=== PATIENT | male | born 1950 | race Caucasian/White ===

== ENCOUNTER 2018-03-02 20:20 | Inpatient (IN) ==
[2018-03-03] MEDS ORDERED: Sod Chloride 0.9% Inj 1,000 ML IV.SIG ONE (00:10)
[2018-03-03] MEDS ORDERED: Morphine Inj 4 MG/ML Vial IV.PUSH PRN (00:10)
--- NOTE | 2018-03-03 00:18 | ED ---
HPI General Chief Complaint: Abdominal Pain Stated Complaint: dr reyes/khoa gallstone Time Seen by Provider: 03/03/18 00:05 Source: patient Mode of arrival: ambulatory Limitations: no limitations History of Present Illness HPI narrative: Patient stated that he started to develop an upper abdominal bandlike sensation since approximately 5:30 PM today just after dinner. Patient stated that he attempted to take antacids, attempted to burp or release flatulence and neither seem to help in any way. He stated 6 out of 10 intensity , however now it is 1 to 0 out of 10. Patient denies any nausea vomiting diarrhea fever cough runny nose sore throat flank pain or chest pain.... Patient states that his primary care advised him to come to the ER to evaluate and make sure that he does not have any infection of his gallbladder Primary care is Dr. Agustín Perez States allergy to doxycycline minocycline type cycling which she develops a rash , erythromycin gives him diarrhea. Has a history past medical history significant for hypertension, rheumatic fever , gallstones. Also states history of cirrhosis Past surgical history significant for hip replacement knee surgery MD complaint: Reports abdominal pain Onset (ago): hour(s) (7) Pain Consistency: constant and now resolved (Resolved just about 30 minutes ago) Location: Reports epigastric Severity: moderate Severity scale (1-10): 6 Quality: Reports aching and fullness Radiation: Reports none Migration to: Reports no migration Relieving factors: nothing Exacerbating factors: nothing Associated symptoms: Reports denies other symptoms Related Data Home Medications Medication Instructions Recorded Confirmed Klor-Con 10 meq PO DAILY 03/03/18 03/03/18 atenolol 100 mg PO DAILY 03/03/18 03/03/18 ezetimibe [Zetia] 10 mg PO DAILY 03/03/18 03/03/18 furosemide 20 mg PO DAILY 03/03/18 03/03/18 losartan 100 mg PO DAILY 03/03/18 03/03/18 omeprazole 20 mg PO DAILY 03/03/18 03/03/18 polyethylene glycol 3350 [Miralax] 17 g PO DAILY 03/03/18 03/03/18 wheat dextrin [Benefiber Clear SF 3 gm PO DAILY 03/03/18 03/03/18 (dextrin)] Allergies Allergy/AdvReac Type Severity Reaction Status Date / Time doxycycline Allergy Severe Rash, Verified 03/02/18 21:04 Generalized minocycline Allergy Severe Rash, Verified 03/02/18 21:04 Generalized tigecycline Allergy Severe Rash, Verified 03/02/18 21:04 Generalized erythromycin base AdvReac Mild Diarrhea Verified 03/02/18 21:04 Review of Systems ROS: all other systems reviewed are negative PMFSH History History Provided By: Patient Medical History Medical History History of gallstones (Acute) Hx of cirrhosis (Acute) Surgical History Surgical History History of hip replacement (Acute) Hx of knee surgery (Acute) Social History Social History Substance History: No History of Abuse Second Hand Smoke Exposure: No Smoking Status: Never smoker How Often Do You Have a Drink Containing Alcohol: Never Recent Travel in [facility] within the Last 8 Weeks: No Recent Out of Country Travel within the Last 8 Weeks: No Exam Narrative Exam Narrative: GENERAL: Well-nourished, well-developed patient in no apparent distress. SKIN: Warm and dry. HEAD: Atraumatic. Normocephalic. EYES: Pupils equal and round. No scleral icterus. No injection or drainage. ENT: No nasal bleeding or discharge. Mucous membranes pink and moist. NECK: Trachea midline. No JVD. CARDIOVASCULAR: Regular rate and rhythm. no rubs or gallops RESPIRATORY: No accessory muscle use. Clear to auscultation. Breath sounds equal bilaterally. GASTROINTESTINAL: Abdomen soft, non-tender, nondistended. No rebound or guarding MUSCULOSKELETAL: Extremities without clubbing, cyanosis, or edema. No obvious deformities. NEUROLOGICAL: Awake and alert. No obvious cranial nerve deficits. Motor grossly within normal limits. Five out of 5 muscle strength in the arms and legs. Normal speech. PSYCHIATRIC: Appropriate mood and affect; insight and judgment normal. Course Initial Documented Vital Signs Temperature 98.2 F 03/02/18 21:02 Pulse Rate 84 03/02/18 21:02 Respiratory Rate 16 03/02/18 21:02 Blood Pressure 192/84 H 03/02/18 21:02 Pulse Oximetry 95 03/02/18 21:02 Last Documented Vital Signs Temperature 98.0 F 03/02/18 21:04 Pulse Rate 86 03/03/18 01:04 Respiratory Rate 20 11/06/18 01:04 Blood Pressure 168/72 H 03/03/18 01:04 Pulse Oximetry 96 03/03/18 01:04 Medical Decision Making MDM Narrative Medical Screen Exam Complete: Yes Emergency Medical Condition: Yes Differential Diagnosis Differential Diagnosis: Colitis versus diverticulitis versus cholecystitis versus biliary colic versus pancreatitis Medical Records Medical records reviewed: Yes I reviewed the patient's medical records. Lab Data Result diagrams: 03/03/18 00:50 03/03/18 00:50 Lab Results 03/03/18 03/03/18 Range/Units 00:50 00:50 WBC 8.4 (4.0-11.0) th/mm3 RBC 4.94 (4.50-5.90) mil/mm3 Hgb 15.8 (13.0-17.0) gm/dL Hct 44.3 (39.0-51.0) % MCV 89.6 (80.0-100.0) fL MCH 32.1 (27.0-34.0) pg MCHC 35.8 (32.0-36.0) % RDW 13.2 (11.6-17.2) % Plt Count 208 (150-450) th/mm3 MPV 8.5 (7.0-11.0) fL Neut % (Auto) 69.1 (16.0-70.0) % Lymph % (Auto) 22.7 (9.0-44.0) % [place] % (Auto) 6.7 (0.0-8.0) % Eos % (Auto) 0.9 (0.0-4.0) % Baso % (Auto) 0.6 (0.0-2.0) % Neut # (Auto) 5.8 (1.8-7.7) th/mm3 Lymph # (Auto) 1.9 (1.0-4.8) th/mm3 [place] # (Auto) 0.6 (0.0-0.9) th/mm3 Eos # (Auto) 0.1 (0.0-0.4) th/mm3 Baso # (Auto) 0.1 (0.0-0.2) th/mm3 WBC Differential . Differential Comment Auto diff final Sodium 130 L (136-145) meq/L Potassium 4.1 (3.5-5.1) meq/L Chloride 93 L (98-107) meq/L Carbon Dioxide 25.2 (21.0-32.0) meq/L Anion Gap 12 (5-15) meq/L BUN 6 L (7-18) mg/dL Creatinine 0.80 (0.60-1.30) mg/dL Estimated GFR Greater than 89 (>89) mL/min Random Glucose 86 (74-106) mg/dL Calcium 9.2 (8.5-10.1) mg/dL Total Bilirubin 1.1 H (0.2-1.0) mg/dL AST 37 (15-37) U/L ALT 33 (12-78) U/L Alkaline Phosphatase 73 (45-117) U/L Total Creatine Kinase 668 H (39-308) U/L CK-MB (CK-2) 2.6 (0.5-3.6) ng/mL CK-MB (CK-2) % 0.4 (0.0-4.0) % Troponin I Less than 0.02 L (0.02-0.05) ng/mL Total Protein 7.5 (6.4-8.2) g/dL Albumin 3.9 (3.4-5.0) g/dL Lipase 88 (73-393) U/L Imaging Data Radiologist's impression: Abdomen/Pelvis CT 03/03/18 00:10 CONCLUSION: Cholecystitis ECG Data EKG Prior to Arrival: No Attestation: I personally reviewed and interpreted this ECG as follows: Prior ECG tracings: not available for review Interpretation: Normal sinus rhythm, 70 bpm, normal intervals, baseline motion artifact however no evidence of any acute ST elevation MA pattern. Discharge Plan Physicians Team ED Provider: Jonathan Ramires Primary Care Provider: Primary Care MoiiLydia Rxs /Orders / Referrals /Forms Prescriptions: No Action polyethylene glycol 3350 [Miralax] 17 gram Powder In Packet 17 g PO DAILY RF: 0 atenolol 100 mg Tablet 100 mg PO DAILY RF: 0 furosemide 20 mg Tablet 20 mg PO DAILY RF: 0 losartan 100 mg Tablet 100 mg PO DAILY RF: 0 ezetimibe [Zetia] 10 mg Tablet 10 mg PO DAILY RF: 0 omeprazole 20 mg Tablet,Delayed Release (Dr/Ec) 20 mg PO DAILY RF: 0 wheat dextrin [Benefiber Clear SF (dextrin)] 3 gram/3.5 gram Powder In Packet 3 gm PO DAILY RF: 0 Klor-Con 10 meq PO DAILY RF: 0 Status ED Status: With Doctor
[2018-03-03 01:30] LABS: Baso # (Auto) 0.1 th/mm3 (0.0-0.2); Baso % (Auto) 0.6 % (0.0-2.0); Eos # (Auto) 0.1 th/mm3 (0.0-0.4); Eos % (Auto) 0.9 % (0.0-4.0); Hematocrit 44.3 % (39.0-51.0); Hemoglobin 15.8 gm/dL (13.0-17.0); Lymph # (Auto) 1.9 th/mm3 (1.0-4.8); Lymph % (Auto) 22.7 % (9.0-44.0); Mean Corpuscular HGB Conc 35.8 % (32.0-36.0); Mean Corpuscular Hemoglobin 32.1 pg (27.0-34.0); Mean Corpuscular Volume 89.6 fL (80.0-100.0); Mean Platelet Volume 8.5 fL (7.0-11.0); Mono # (Auto) 0.6 th/mm3 (0.0-0.9); Mono % (Auto) 6.7 % (0.0-8.0); Neut # (Auto) 5.8 th/mm3 (1.8-7.7); Neut % (Auto) 69.1 % (16.0-70.0); Platelet Count 208 th/mm3 (150-450); Red Blood Count 4.94 mil/mm3 (4.50-5.90); Red Cell Distribution Width 13.2 % (11.6-17.2); White Blood Count 8.4 th/mm3 (4.0-11.0)
[2018-03-03 01:53] LABS: Anion Gap 12 meq/L (5-15)
[2018-03-03 02:01] LABS: Alanine Aminotransferase 33 U/L (12-78); Albumin 3.9 g/dL (3.4-5.0); Alkaline Phosphatase 73 U/L (45-117); Aspartate Aminotransferase 37 U/L (15-37); Blood Urea Nitrogen 6 mg/dL (7-18); Calcium 9.2 mg/dL (8.5-10.1); Carbon Dioxide 25.2 meq/L (21.0-32.0); Chloride 93 meq/L (98-107); Creatine Kinase 668 U/L (39-308); Glomerular Filtration Rate Greater Than 89 mL/min (>89); Glucose,Random 86 mg/dL (74-106); Lipase 88 U/L (73-393); Sodium 130 meq/L (136-145); Total Protein 7.5 g/dL (6.4-8.2)
[2018-03-03 02:02] LABS: Potassium 4.1 meq/L (3.5-5.1)
[2018-03-03 02:14] LABS: CKMB Percent 0.4 % (0.0-4.0); Creatine Kinase MB 2.6 ng/mL (0.5-3.6)
--- NOTE | 2018-03-03 03:20 | CT ---
EXAM DATE: 03/03/2018 3:07 AM EST AGE/SEX: 67 years / Male INDICATIONS: Upper abdominal pain. CLINICAL DATA: This is the patient's initial encounter. Patient reports that signs and symptoms have been present for 2 days and indicates a pain score of 7/10. MEDICAL/SURGICAL HISTORY: Cirrhosis. Gallstones. None. ORAL CONTRAST: No oral contrast ingested. RADIATION DOSE: 8.08 CTDI (mGy) COMPARISON: [facility], US ABDOMEN LIVER, 07/09/2017. . TECHNIQUE: Multiple contiguous axial images were obtained through the abdomen and pelvis following b olus infusion of 85 ml Omnipaque 350 (iohexol) nonionic water-soluble contrast as a single exam dos e. No oral contrast ingested. Using automated exposure control and adjustment of the mA and/or kV ac cording to patient size, radiation dose was kept as low as reasonably achievable to obtain optimal di agnostic quality images. DICOM format image data is available electronically for review and comparis on. FINDINGS: Lower Lungs: The visualized lower lungs are clear. Liver: The liver has a homogeneous density without space-occupying lesion. There is no dilation of th e biliary tree. Several gallstones are present, including a stone in the gallbladder neck. There is p rominent gallbladder wall thickening and pericholecystic induration. Appearance consistent with aris cystitis. Spleen: Homogeneous density without enlargement. Pancreas: Unremarkable without mass or calcification. Kidneys: Normal in size and shape. No evidence of mass or hydronephrosis. Adrenal Glands: Unremarkable. Aorta: The aorta and proximal iliac vessels are grossly unremarkable without aneurysmal dilation. Bowel/Mesentery: The bowel loops are grossly unremarkable. The cecum and sigmoid colon have a normal configuration. Abdominal Wall: Intact. Retroperitoneum: No evidence of adenopathy in the retrocrural, para-aortic, or deep pelvic regions. Bladder: Contours are smooth. Reproductive Organs: No abnormal masses or calcifications seen. Inguinal: The inguinal region is unremarkable without evidence of adenopathy. Bony Structures: Left total hip arthroplasty producing streak artifact over the low pelvis. Mild deg enerative changes in the spine. CONCLUSION: Cholecystitis Electronically signed by: Agustín Malin MD 03/03/2018 3:19 AM EST
[2018-03-03] MEDS ORDERED: Piperacil/Tazo 3.375 GM Premix 50 ML IV.SIG ONE (03:26)
[2018-03-03] MEDS ORDERED: Bisacodyl 10 MG Supp RECTAL PRN (04:00)
[2018-03-03 04:15] LABS: Bilirubin,Urine Negative (Negative); Clarity,Urine Clear (Clear); Color,Urine Straw (Yellw/Straw); Glucose,Urine (UA) Negative (Negative); Leukocyte Esterase,Urine Negative (Negative); Nitrite,Urine Negative (Negative); Specific Gravity,Urine 1.003 (1.002-1.035)
[2018-03-03] MEDS: Sod Chloride 0.9% Inj 1,000 ML IV.CONT SCH ×2 (06:02→22:33)
[2018-03-03] MEDS: Piperacil/Tazo 4.5 GM Premix 4.5 GM/100 ML BAG IV.SIG SCH ×4 (06:18→22:27)
--- NOTE | 2018-03-03 08:03 | ECG ---
Date Performed: 03/03/2018 Time Performed: 00:35:47 PTAGE: 67 years EKG: Sinus rhythm NORMAL ECG Compared to prior electrocardiogram, Nonspecific T-wave changes have improved. PREVIOUS TRACING : 06/02/2011 18.29 DOCTOR: Paul Garcia Interpretating Date/Time 03/03/2018 08:02:17
--- NOTE | 2018-03-03 09:18 | MH ---
cc: Nikolay Perez MD DATE OF ADMISSION: 03/03/2018 ADMITTING DIAGNOSIS: Epigastric and right upper quadrant abdominal pain, acute cholecystitis. HISTORY OF PRESENT ILLNESS: This 67-year-old white male with a history of alcoholic cirrhosis, hyperlipidemia and hypertension, contacted the undersigned physician on the evening prior to admission complaining of epigastric and right upper quadrant discomfort following a meal. He states that he tried to belch and did not have any improvement. He had some nausea, but no emesis. He denied any fever or chills. His last bowel movement was earlier in the day. He denied any melena or hematochezia. The patient denied any cough, shortness of breath, or palpitations. He has a known history of cholelithiasis, based on a previous imaging study, but he has been asymptomatic. The patient was instructed to report to the emergency department for further evaluation and treatment. PAST MEDICAL HISTORY: Significant for alcoholic cirrhosis, for which he had a decompensation over 5 years ago. He has been asymptomatic since then and has been abstaining from alcohol. He has a history of a left patellar fracture, which was treated conservatively in 2013, hypertension, mitral valve prolapse, history of cholelithiasis. He has Dupuytren contractures of bilateral 5th fingers. He has Gilbert disease and seborrhea of the scalp. He is status post a left total hip replacement in 2009, and he is status post a hemorrhoidectomy. He also has a history of GERD. 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 CURRENT MEDICATIONS: 1. Atenolol 100 mg daily. 2. Potassium chloride 10 mEq daily. 3. Benefiber 2 tablespoons in 8 ounces of liquid daily. 4. MiraLax 17 grams in 8 ounces of liquid daily. 5. Omeprazole 20 mg daily. 6. Doxycycline 100 mg 1 capsule every other day. 7. Furosemide 20 mg 1 tablet daily. 8. Zetia 10 mg 1 tablet daily. 9. Losartan 50 mg 1 tablet daily. ALLERGIES: HE HAS NO KNOWN DRUG ALLERGIES. FAMILY HISTORY: Noncontributory. SOCIAL HISTORY: He is single. He lives alone. He is a businessman. He does not smoke. He did drink heavily in the past, but has abstained from alcohol for more than 5 years. REVIEW OF SYSTEMS: Negative except as outlined above. PHYSICAL EXAMINATION: VITAL SIGNS: Upon arrival to the emergency department, the patient's blood pressure was 192/84 with a heart rate 84, respirations 16, temperature was 98.2 degrees Fahrenheit, oxygen saturation on room air was 95%. Currently, his blood pressure is 165/78 with a heart rate of 88, respirations 20, oxygen saturation on room air is 98%. GENERAL: This is an overweight, elderly white male sitting up in bed, in no acute distress at this time. HEENT: Pupils equal, round, reactive to light. Extraocular movements are intact. Sclerae are anicteric. Conjunctivae are pink. Mouth and throat reveal moist mucous membranes. No erythema or exudates. Dentition is good. NECK: Supple without lymphadenopathy, JVD, bruits or thyromegaly. CARDIOVASCULAR: Regular rate and rhythm without murmurs, rubs or gallops. LUNGS: Clear to auscultation without wheezes, rhonchi or rales. ABDOMEN: Obese, soft, nontender, nondistended with bowel sounds present. No masses palpable. No hepatosplenomegaly. No CVAT. GENITOURINARY AND RECTAL: Deferred. LOWER EXTREMITIES: Reveal no appreciable edema. No calf tenderness. No Homans sign and 2+ distal pulses. SKIN: Warm and dry. No significant rashes or lesions. NEUROLOGIC: Nonfocal. LABORATORY DATA: The comprehensive metabolic profile was significant for sodium of 130, chloride 93. The total bilirubin was mildly elevated at 1.1. AST and ALT were normal at 37 and 33 respectively, alkaline phosphatase normal at 73. Troponin was less than 0.02. CK was 668 with an MB percent of only 0.4. The white blood cell count 8.4, hemoglobin 15.8, hematocrit 44.3, platelet count was 208,000. Differential was within normal limits. Urinalysis revealed a specific gravity of 1.003, pH of 7.0, 20 mg percent ketones, otherwise all the indices were negative. Culture was not indicated. A CT scan of the abdomen and pelvis revealed that the liver was homogeneous density without space-occupying lesion. There was no dilation of the biliary tree. There were several gallstones present including a stone in the neck of the gallbladder. There was prominent gallbladder wall thickening and pericolic induration. Appearance is consistent with cholecystitis. Otherwise, unremarkable study. IMPRESSION AND PLAN: This 67-year-old white male presents today with abdominal pain and nausea following a meal. CT scan is consistent with cholecystitis. The patient will be admitted to A medical/surgical bed, made n.p.o., placed on IV fluids. He was placed on IV antibiotics in the form of Zosyn. I have consulted general surgery for evaluation for possible cholecystectomy. The patient is currently asymptomatic, which is a significant change from his presentation to the emergency department. It is possible that he was experiencing some choledocholithiasis causing his acute discomfort, but he does have findings consistent with cholecystitis. White blood cell count is normal and liver function studies are normal, so we will discuss the need for surgery with general surgery. 2. Hypertension. Blood pressure elevated. The patient did not take his usual medications last evening. We will resume his atenolol and losartan. Will monitor blood pressure closely. Provide additional medication if needed to control hypertension. 3. History of gastroesophageal reflux disease. The patient will be placed on IV pantoprazole until can take p.o. and then will transition back to omeprazole. 4. Hyperlipidemia. The patient normally takes Zetia. We will hold for now, resume after at the time of discharge. 5. Elevated CK level. The patient's EKG is unchanged from prior study and shows no findings of acute ischemia. MB percent was low. We will repeat CK and follow levels. Troponin was within normal limits. Doubt any coronary ischemia. I have explained the plan of care to the patient who expressed understanding and agreement. MD RYAN Claros/godwin , 08:42 AM , 08:56 AM
[2018-03-03] MEDS: Pantoprazole Inj 40 MG Vial IV.PUSH SCH (11:01)
[2018-03-03] MEDS: Atenolol 100 MG Tablet PO SCH (11:02)
--- NOTE | 2018-03-03 12:09 | P.CONGS ---
[facility] Gen Surgery Consult Note Consult date: 03/03/18 Reason for consult: abdominal pain Requesting physician: Nikolay Perez Narrative: This is a 67-year-old male with past medical history of known cholelithiasis and cirrhosis. He presented to the emergency room yesterday evening after developing right upper quadrant and epigastric pain after eating dinner around 5 PM. Patient reports no nausea, vomiting, fevers or chills. A CT abdomen pelvis was done which shows cholecystitis and a gallstone in the neck of the gallbladder with gallbladder wall thickening and pericholecystic fluid. The patient's white blood cell count is normal. The patient's total bilirubin is 1.1. His AST is 37; ALT 33; alkaline phosphate is 73. The patient's lipase is 88. Of note, the patient does have a history of EtOH abuse but has been sober for about 5 years now. A General Surgery consultation has been requested. Review of Systems All other systems reviewed negative except as stated in [facility] - History History Provided By: Patient - Medical History Medical History: Medical History (Last Reviewed 03/03/18 @ 12:05 by SANTOSH James) History of gallstones Hx of cirrhosis - Surgical History Surgical History: Surgical History (Last Reviewed 03/03/18 @ 12:05 by SANTOSH James) History of hip replacement Hx of knee surgery - Tobacco History Second Hand Smoke Exposure: No Tobacco Use In Past 30 Days: No Smoking Status: Never smoker - Alcohol History How Often Do You Have a Drink Containing Alcohol: Never - Substance Use History Substance History: No History of Abuse - Travel History Recent Travel in the [place] Within the Last 8 Weeks: No Recent Travel Out of the Country Within the Last 8 Weeks: No - Immunization History Tetanus Immunization: <5 Years Medications and Allergies Active Medications: Active Medications Al Hydroxide/Mg Hydroxide (Milk Of Lion Liq) 30 ml PO Q12H PRN PRN Reason: Mild Constipation Atenolol (Tenormin) 100 mg PO DAILY [facility] Last Admin: 03/03/18 11:02 Dose: 100 mg Bisacodyl (Dulcolax Supp) 10 mg RECTAL DAILY PRN PRN Reason: SEVERE CONSITIPATION Enalaprilat (Vasotec Inj) 1.25 mg IV.PUSH Q6H PRN PRN Reason: SBP>160, DBP>90 Piperacillin/Tazobactam/Dextrose (Zosyn 4.5 Gm Premix) 4.5 gm in 100 mls @ 200 mls/hr IV.SIG Q6H [facility] Last Admin: 03/03/18 11:16 Dose: 200 mls/hr Sodium Chloride (Ns Inj) 1,000 mls @ 60 mls/hr IV.CONT .[id number] [facility] Last Admin: 03/03/18 06:02 Dose: 60 mls/hr Lactulose (Lactulose Liq) 30 ml PO DAILY PRN PRN Reason: SEVERE CONSITIPATION Losartan Potassium (Cozaar) 100 mg PO DAILY [facility] Last Admin: 03/03/18 11:01 Dose: 100 mg Morphine Sulfate (Morphine Inj) 2 mg IV.PUSH ONCE PRN PRN Reason: ABDOMINAL PAIN Pantoprazole Sodium (Protonix Inj) 40 mg IV.PUSH Q24H [facility] Last Admin: 03/03/18 11:01 Dose: 40 mg Sennosides (Senokot) 17.2 mg PO Q12H PRN PRN Reason: Moderate Constipation Sodium Chloride (Ns Flush) 2 ml IV.FLUSH PRN PRN PRN Reason: FLUSH AFTER USING IV ACCESS Allergies Allergy/AdvReac Type Severity Reaction Status Date / Time doxycycline Allergy Severe Rash, Verified 03/02/18 21:04 Generalized minocycline Allergy Severe Rash, Verified 03/02/18 21:04 Generalized tigecycline Allergy Severe Rash, Verified 03/02/18 21:04 Generalized erythromycin base AdvReac Mild Diarrhea Verified 03/02/18 21:04 Home Medications Medication Instructions Recorded Confirmed Type Klor-Con 10 meq PO DAILY 03/03/18 03/03/18 History atenolol 100 mg PO DAILY 03/03/18 03/03/18 History ezetimibe [Zetia] 10 mg PO DAILY 03/03/18 03/03/18 History furosemide 20 mg PO DAILY 03/03/18 03/03/18 History losartan 100 mg PO DAILY 03/03/18 03/03/18 History omeprazole 20 mg PO DAILY 03/03/18 03/03/18 History polyethylene glycol 3350 [Miralax] 17 g PO DAILY 03/03/18 03/03/18 History wheat dextrin [Benefiber Clear SF 3 gm PO DAILY 11/06/18 11/06/18 History (dextrin)] Exam Vital signs: Vital Signs 03/02/18 21:02 03/02/18 21:04 03/03/18 01:04 Temperature 98.2 F 98.0 F Pulse Rate 84 88 86 Respiratory Rate 16 20 20 Blood Pressure 192/84 H 178/88 H 168/72 H Pulse Oximetry 95 98 96 03/03/18 05:00 03/03/18 06:34 Temperature Pulse Rate 86 88 Respiratory Rate 20 20 Blood Pressure 168/72 H 165/78 H Pulse Oximetry 96 98 Intake & Output 03/02/18 03/03/18 03/03/18 18:59 06:59 18:59 Intake Total 1100 / 1100 100 / 100 Output Total 300 / 300 Balance 800 / 800 100 / 100 Weight 88.451 kg Intake: IV 1100 / 1100 100 / 100 Zosyn 4.5 GM Premix 4.5 gm In 100 / 100 100 ml @ 200 mls/hr IV.SIG Q6H [facility] Rx#:[id number] NS Inj 1,000 ML @ Wide Open IV. 1000 / 1000 [facility] Rx#:[id number] Flagyl 500 MG Inj 100 ML @ 100 100 / 100 mls/hr IV.SIG ONCE ONE Rx#: [id number] Output: Urine 300 / 300 Narrative: GENERAL: 67 year old male resting in bed in no acute distress. SKIN: Warm and dry. HEAD: Atraumatic. Normocephalic. EYES: Pupils equal and round. No scleral icterus. No injection or drainage. ENT: No nasal bleeding or discharge. Mucous membranes pink and moist. NECK: Trachea midline. CARDIOVASCULAR: Regular rate and rhythm. RESPIRATORY: No accessory muscle use. Clear to auscultation. Breath sounds equal bilaterally. GASTROINTESTINAL: Abdomen soft, nondistended. No RUQ tenderness to palpation. He does have a small umbilical hernia. MUSCULOSKELETAL: Extremities without clubbing, cyanosis, or edema. No obvious deformities. NEUROLOGICAL: Awake and alert. No obvious cranial nerve deficits. Motor grossly within normal limits. Five out of 5 muscle strength in the arms and legs. Normal speech. PSYCHIATRIC: Appropriate mood and affect; insight and judgment normal. Results - Labs 03/04/18 05:03 03/04/18 05:03 Laboratory Results WBC 8.4 th/mm3 (4.0-11.0) 03/03/18 00:50 RBC 4.94 mil/mm3 (4.50-5.90) 03/03/18 00:50 Hgb 15.8 gm/dL (13.0-17.0) 03/03/18 00:50 Hct 44.3 % (39.0-51.0) 03/03/18 00:50 MCV 89.6 fL (80.0-100.0) 03/03/18 00:50 MCH 32.1 pg (27.0-34.0) 03/03/18 00:50 MCHC 35.8 % (32.0-36.0) 03/03/18 00:50 RDW 13.2 % (11.6-17.2) 03/03/18 00:50 Plt Count 208 th/mm3 (150-450) 03/03/18 00:50 MPV 8.5 fL (7.0-11.0) 03/03/18 00:50 Neut % (Auto) 69.1 % (16.0-70.0) 03/03/18 00:50 Lymph % (Auto) 22.7 % (9.0-44.0) 03/03/18 00:50 [place] % (Auto) 6.7 % (0.0-8.0) 03/03/18 00:50 Eos % (Auto) 0.9 % (0.0-4.0) 03/03/18 00:50 Baso % (Auto) 0.6 % (0.0-2.0) 03/03/18 00:50 Neut # (Auto) 5.8 th/mm3 (1.8-7.7) 03/03/18 00:50 Lymph # (Auto) 1.9 th/mm3 (1.0-4.8) 03/03/18 00:50 [place] # (Auto) 0.6 th/mm3 (0.0-0.9) 03/03/18 00:50 Eos # (Auto) 0.1 th/mm3 (0.0-0.4) 03/03/18 00:50 Baso # (Auto) 0.1 th/mm3 (0.0-0.2) 03/03/18 00:50 WBC Differential . 03/03/18 00:50 Differential Comment Auto diff final 03/03/18 00:50 Sodium 130 meq/L (136-145) L 03/03/18 00:50 Potassium 4.1 meq/L (3.5-5.1) 03/03/18 00:50 Chloride 93 meq/L (98-107) L 03/03/18 00:50 Carbon Dioxide 25.2 meq/L (21.0-32.0) 03/03/18 00:50 Anion Gap 12 meq/L (5-15) 03/03/18 00:50 BUN 6 mg/dL (7-18) L 03/03/18 00:50 Creatinine 0.80 mg/dL (0.60-1.30) 03/03/18 00:50 Estimated GFR Greater than 89 mL/min (>89) 03/03/18 00:50 Random Glucose 86 mg/dL (74-106) 03/03/18 00:50 Calcium 9.2 mg/dL (8.5-10.1) 03/03/18 00:50 Total Bilirubin 1.1 mg/dL (0.2-1.0) H 03/03/18 00:50 AST 37 U/L (15-37) 03/03/18 00:50 ALT 33 U/L (12-78) 03/03/18 00:50 Alkaline Phosphatase 73 U/L (45-117) 03/03/18 00:50 Total Creatine Kinase 668 U/L (39-308) H 03/03/18 00:50 CK-MB (CK-2) 2.6 ng/mL (0.5-3.6) 03/03/18 00:50 CK-MB (CK-2) % 0.4 % (0.0-4.0) 03/03/18 00:50 Troponin I Less than 0.02 ng/mL (0.02-0.05) L 03/03/18 00:50 Total Protein 7.5 g/dL (6.4-8.2) 03/03/18 00:50 Albumin 3.9 g/dL (3.4-5.0) 03/03/18 00:50 Lipase 88 U/L (73-393) 03/03/18 00:50 Urine Color Straw (Yellw/Straw) 03/03/18 04:00 Urine Clarity Clear (Clear) 03/03/18 04:00 Urine pH 7.0 (5.0-8.5) 03/03/18 04:00 Ur Specific [place] 1.003 (1.002-1.035) 03/03/18 04:00 Urine Protein Negative mg/dL (Neg-Trace) 03/03/18 04:00 Urine Glucose (UA) Negative mg/dL (Negative) 03/03/18 04:00 Urine Ketones 20 mg/dL (Negative) 03/03/18 04:00 Urine Occult Blood Negative (Negative) 03/03/18 04:00 Urine Nitrate Negative (Negative) 03/03/18 04:00 Urine Bilirubin Negative (Negative) 03/03/18 04:00 Urine Urobilinogen Less than 2 mg/dL (Less than 2) 03/03/18 04:00 Ur Leukocyte Esterase Negative (Negative) 03/03/18 04:00 Urine RBC Less than 1 /hpf (0-3) 03/03/18 04:00 Urine WBC Less than 1 /hpf (0-5) 03/03/18 04:00 Micro UA Comment Culture not ind 03/03/18 04:00 Ur Microscopic Review Not Reportable 03/03/18 04:00 Urine Culture Comments Culture not ind 03/03/18 04:00 Impressions Abdomen/Pelvis CT 03/03/18 00:10 CONCLUSION: Cholecystitis - Imaging Imaging: ITS Impressions Abdomen/Pelvis CT 03/03/18 00:10 CONCLUSION: Cholecystitis CT scan - abdomen: image reviewed Assessment and Plan - Assessment (1) Cholecystitis Code(s): K81.9 - Cholecystitis, unspecified Status: Acute Plan: 67 year old male with cholecystitis -Discussed option of inpatient laparoscopic cholecystectomy vs outpatient elective procedure -Patient prefers to have laparoscopic cholecystectomy as inpatient -Obtain consents -NPO -IVF -Continue Zosyn -The OR has been notified about the patient --Will attempt to add on to schedule for this afternoon -Procedure explained in detail including risks and benefits -Thank you for this consult; We will continue to follow - Plan Discussed Condition With: Dr. Alexandro Perez RN Mr. Galdamez
[2018-03-03] MEDS ORDERED: Bupivacaine/Epinephrine 0.5% Inj 50 ML Vial ONE (15:07)
[2018-03-03] MEDS ORDERED: Lidocaine PF 1% Inj 5 ML Syringe OTHER ONE (17:12)
[2018-03-03] MEDS ORDERED: Phenylephrine/NS 1000 MCG/10ML Syringe IV.PUSH ONE (17:12)
[2018-03-03] MEDS ORDERED: Glycopyrrolate Inj 1 MG/5 ML Syringe IV.PUSH ONE (17:12)
--- NOTE | 2018-03-03 17:23 | P.OP ---
- Preoperative Diagnosis (1) Cholecystitis - Postoperative Diagnosis (1) Cholecystitis Procedure: lap aris with umbilical hernia repair Anesthesia: GETA Surgeon: Chris Mc MD Estimated blood loss (mL): 15 Pathology: other (gallbladder) Operation and Findings: gallstones, inflamed gallbladder, umbilical hernia
[2018-03-03] MEDS ORDERED: Morphine Sulfate Inj 2 MG/ML Vial IV.PUSH PRN (17:24)
[2018-03-03] MEDS ORDERED: Metoprolol Tartrate 25 MG Tablet PO PRN (17:42)
[2018-03-03] MEDS ORDERED: Chlorhexidine Gluconate 2% 1 Pack (2 Cloths) TOPICAL ONE (17:42)
[2018-03-03] MEDS ORDERED: Sodium Chlor 0.9% Inj 500 ML IV.SIG SCH (18:00)
[2018-03-03] MEDS ORDERED: Sugammadex Inj 200 MG/2 ML Vial IV.PUSH ONE (18:03)
[2018-03-03] MEDS ORDERED: fentaNYL Citrate Inj 100 MCG/2 ML Ampul ONE ×2 (18:47)
[2018-03-03] MEDS ORDERED: *morphine SULFATE 4 MG/ML PERIprocedure ONLY ONE ×2 (18:53→19:05)
[2018-03-03] MEDS ORDERED: *Meperidine Inj 25 MG/ML Vial PERIprocedural Use ONLY ONE (19:24)
--- NOTE | 2018-03-03 20:48 | MP ---
cc: Chris Mc MD DATE OF OPERATION: 03/03/2018 PREOPERATIVE DIAGNOSES: 1. Acute cholecystitis with cholelithiasis. 2. Umbilical hernia. POSTOPERATIVE DIAGNOSES: 1. Acute cholecystitis with cholelithiasis. 2. Umbilical hernia. PROCEDURE PERFORMED: 1. Laparoscopic cholecystectomy. 2. Umbilical hernia repair. SURGEON: Chris Mc MD SHOOK MACHINE OPERATOR: None. ANESTHESIA: GETA. INTRAVENOUS FLUIDS: See anesthesia sheet. ESTIMATED BLOOD LOSS: 15 mL. DRAINS: None. COMPLICATIONS: None. WOUND CLASSIFICATION: Clean/contaminated. SPECIMENS: Gallbladder. FINDINGS: Multiple gallstones within an inflamed gallbladder. A small umbilical hernia repair HISTORY OF PRESENT ILLNESS: The patient presented as an acute episode of abdominal pain. The patient was noted to have a history of gallstones and cirrhosis and had an episode of right upper quadrant abdominal pain. He came to the emergency department for further evaluation which included a CT scan showing gallstones in the gallbladder and a thickened gallbladder wall with an umbilical hernia. A decision was made for operative intervention. DETAILS OF PROCEDURE: The patient was taken to the operating suite and placed in the supine position. He was prepped and draped in the usual sterile fashion after induction of general endotracheal anesthesia. A brief timeout was done, stating correct patient, procedure and surgical site. We were all in agreement with this. Attention was directed to the umbilicus where a curvilinear incision was made with a 15 blade. Further dissection to mobilize the umbilicus and dissect out the hernia sac was done with a hemostat. The sac was incised and a trocar was placed in this. The abdomen was insufflated to 15 mmHg pneumoperitoneum. Three other ports were placed, 1 epigastric 12 mm, followed by two 5 mm right subcostal ports. The patient was placed in reverse Trendelenburg and airplaned to the left. Gallbladder fundus was noted to be a little bit contracted and edematous and the liver was noted to have some cirrhotic scarring, moderate. The gallbladder was grasped and retracted cephalad. The cystic duct and cystic artery were dissected out in the usual sterile manner with hook electrocautery and a [place]. These were identified as the only structures going into gallbladder. Two clips were placed proximal and 1 distal on the gallbladder cystic duct and this was incised. The cystic artery was also incised with 2 clips placed proximally and 1 distally. The gallbladder was removed from the gallbladder fossa with hook electrocautery. There was a small little bleeder on the lateral aspect of the gallbladder bed. Two clips were placed and hemostasis was noted. The gallbladder was placed in the EndoCatch bag and removed from the gallbladder fossa. Hook electrocautery was used to cauterize the gallbladder bed. The gallbladder was removed from the epigastric port. No evidence of bleeding or biliary leak. Next, the patient was placed flat and the ports were removed. Attention was further directed to the umbilicus where the subcutaneous tissue was cleared off the fascia and the hernia was noted. Then, 0 Prolene was used in a [id number] x 3 to approximate the hernia defect. The hernia defect was closed with a primary repair. Hemostasis was obtained with Bovie electrocautery. The hernia was closed in layers with 3-0 Vicryl, followed by 4-0 Monocryl and the 4-0 Monocryl was used for all subcuticular sutures. Also, 0 Vicryl was placed at the epigastric port to the fascia to reapproximate this. A sterile dressing was placed, including Mastisol and Steri-Strips. The patient tolerated the procedure well. There were no intraoperative complications. All lap and instrument counts were correct at the end of the procedure. The patient was extubated and taken stable to the PACU. MD ANDREIA Means/goldie , 06:29 PM , 06:40 PM
[2018-03-04] MEDS: Piperacil/Tazo 4.5 GM Premix 4.5 GM/100 ML BAG IV.SIG SCH (03:15)
[2018-03-04 06:15] LABS: Baso % (Auto) 0.1 % (0.0-2.0); Hematocrit 41.7 % (39.0-51.0); Hemoglobin 14.7 gm/dL (13.0-17.0); Lymph # (Auto) 0.7 th/mm3 (1.0-4.8); Lymph % (Auto) 8.5 % (9.0-44.0); Mean Corpuscular HGB Conc 35.2 % (32.0-36.0); Mean Corpuscular Hemoglobin 31.9 pg (27.0-34.0); Mean Corpuscular Volume 90.5 fL (80.0-100.0); Mean Platelet Volume 8.5 fL (7.0-11.0); Mono # (Auto) 0.3 th/mm3 (0.0-0.9); Mono % (Auto) 3.8 % (0.0-8.0); Neut # (Auto) 6.7 th/mm3 (1.8-7.7); Neut % (Auto) 87.6 % (16.0-70.0); Platelet Count 200 th/mm3 (150-450); Red Cell Distribution Width 13.4 % (11.6-17.2); White Blood Count 7.7 th/mm3 (4.0-11.0)
[2018-03-04 06:43] LABS: Alanine Aminotransferase 32 U/L (12-78); Albumin 3.3 g/dL (3.4-5.0); Alkaline Phosphatase 64 U/L (45-117); Anion Gap 8 meq/L (5-15); Aspartate Aminotransferase 22 U/L (15-37); Blood Urea Nitrogen 7 mg/dL (7-18); Calcium 8.9 mg/dL (8.5-10.1); Carbon Dioxide 24.3 meq/L (21.0-32.0); Chloride 103 meq/L (98-107); Glomerular Filtration Rate 84 mL/min (>89); Glucose,Random 111 mg/dL (74-106); Potassium 4.3 meq/L (3.5-5.1); Sodium 135 meq/L (136-145); Total Protein 6.6 g/dL (6.4-8.2)
[2018-03-04 07:59] VITALS: BP 142/63; PULSE 72; RESP 16; TEMP 97.3; O2SAT 92
[2018-03-04] MEDS: Atenolol 100 MG Tablet PO SCH (08:47)
[2018-03-04] MEDS: Pantoprazole Inj 40 MG Vial IV.PUSH SCH (08:47)
--- NOTE | 2018-03-04 08:57 | P.PN ---
Subjective Interval history: Status post laparoscopic cholecystectomy last evening. Patient with mild discomfort in abdomen consistent with postoperative pain. No nausea or vomiting. Tolerating clear liquids. Diet was advanced by surgery to regular diet this morning. Patient will be out of bed and ambulating in room. Blood pressure under adequate control. Active Medications Generic Name Dose Route Start Last Admin Trade Name Freq PRN Reason Stop Dose Admin Al Hydroxide/Mg Hydroxide 30 ml 03/03/18 04:00 Milk Of Magnesia Liq PO Q12H PRN Mild Constipation Atenolol 100 mg 03/03/18 09:00 03/04/18 08:47 Tenormin PO 100 mg DAILY [facility] Administration Bisacodyl 10 mg 03/03/18 04:00 Dulcolax Supp RECTAL DAILY PRN SEVERE CONSITIPATION Enalaprilat 1.25 mg 03/03/18 04:03 Vasotec Inj IV.PUSH Q6H PRN SBP>160, DBP>90 Sodium Chloride 1,000 mls @ 60 mls/hr 03/03/18 04:00 03/03/18 22:33 Ns Inj IV.CONT 60 mls/hr .[id number] [facility] Infusion Sodium Chloride 500 mls @ 30 mls/hr 03/03/18 18:00 03/03/18 22:23 Ns Inj IV.SIG 03/04/18 10:39 Not Given .[id number] [facility] Lactulose 30 ml 03/03/18 04:00 Lactulose Liq PO DAILY PRN SEVERE CONSITIPATION Losartan Potassium 100 mg 03/03/18 09:00 03/04/18 08:47 Cozaar PO 100 mg DAILY [facility] Administration Metoprolol Tartrate 25 mg 03/03/18 17:42 Lopressor PO 03/04/18 17:41 CARBURETOR REPAIRER PRN SEE LABEL COMMENTS Miscellaneous Information 1 each 03/03/18 19:02 Misc Nursing Information OTHER 03/04/18 19:02 UNSCH PRN SEE LABEL COMMENTS Morphine Sulfate 2 mg 03/03/18 17:24 Morphine Inj IV.PUSH Q3H PRN BREAKTHROUGH PAIN Oxycodone/Acetaminophen 1 tab 03/03/18 17:25 Percocet 5/325 Mg PO Q4H PRN PAIN SCALE 1 TO 5 Pantoprazole Sodium 40 mg 03/03/18 09:00 03/04/18 08:47 Protonix Inj IV.PUSH 40 mg Q24H [facility] Administration Sennosides 17.2 mg 03/03/18 04:00 Senokot PO Q12H PRN Moderate Constipation Sodium Chloride 2 ml 03/03/18 00:10 Ns Flush IV.FLUSH PRN PRN FLUSH AFTER USING IV ACCESS Physical Exam Vital signs: Vital Signs 03/03/18 09:00 03/03/18 13:00 03/03/18 18:38 Temperature 98 F 98.2 F 98.7 F Pulse Rate 78 70 75 Respiratory Rate 18 18 18 Blood Pressure 163/88 H 157/94 H 139/66 Pulse Oximetry 98 95 98 03/03/18 19:00 03/03/18 19:15 03/03/18 19:30 Temperature Pulse Rate 64 58 L 64 Respiratory Rate 18 18 18 Blood Pressure 142/72 H 144/69 H 143/72 H Pulse Oximetry 98 98 94 L 03/03/18 19:45 03/03/18 20:00 03/04/18 00:00 Temperature 98 F 97.2 F L 97.2 F L Pulse Rate 59 L 61 63 Respiratory Rate 18 18 19 Blood Pressure 133/65 136/66 110/59 L Pulse Oximetry 96 93 L 94 L 03/04/18 01:48 03/04/18 04:00 03/04/18 07:58 Temperature 97.2 F L 97.3 F L Pulse Rate 64 72 Respiratory Rate 18 19 16 Blood Pressure 122/61 142/63 H Pulse Oximetry 93 L 92 L Intake & Output 03/03/18 03/04/18 03/04/18 18:59 06:59 18:59 Intake Total 1500 / 1500 1200 / 1200 Output Total 365 / 365 575 / 575 Balance 1135 / 1135 625 / 625 Weight 200 lb 2.876 oz Intake: IV 200 / 200 400 / 400 NS Inj 1,000 ML @ 60 mls/hr IV. 100 / 100 CONT .[id number] [facility] Rx#:[id number] Zosyn 4.5 GM Premix 4.5 gm In 100 / 100 300 / 300 100 ml @ 200 mls/hr IV.SIG Q6H [facility] Rx#:[id number] Flagyl 500 MG Inj 100 ML @ 100 100 / 100 mls/hr IV.SIG ONCE ONE Rx#: [id number] Oral 0 / 0 800 / 800 Anesthesia Amount 1300 / 1300 Output: Urine 350 / 350 575 / 575 Estimated Blood Loss Other: Date of Last Bowel Movement 03/02/18 - Constitutional Comments: Mild distress due to some incisional discomfort - Routine Respiratory Exam Present: CTA bilaterally - Routine Cardiovascular Exam Present: RRR - Routine Abdominal Exam Comments: Soft, mild distention, mild tenderness around umbilical incision, bowel sounds present, no masses Results - Labs CBC & Chem 7: 03/04/18 05:03 03/04/18 05:03 Laboratory Results - last 24 hr 03/03/18 03/04/18 03/04/18 13:39 05:03 05:03 WBC 7.7 RBC 4.60 Hgb 14.7 Hct 41.7 MCV 90.5 MCH 31.9 MCHC 35.2 RDW 13.4 Plt Count 200 MPV 8.5 Neut % (Auto) 87.6 H Lymph % (Auto) 8.5 L [place] % (Auto) 3.8 Eos % (Auto) 0.0 Baso % (Auto) 0.1 Neut # (Auto) 6.7 Lymph # (Auto) 0.7 L [place] # (Auto) 0.3 Eos # (Auto) 0.0 Baso # (Auto) 0.0 WBC Differential . Differential Comment Auto diff final Sodium 135 L Potassium 4.3 Chloride 103 D Carbon Dioxide 24.3 Anion Gap 8 BUN 7 Creatinine 0.90 Estimated GFR 84 L Random Glucose 111 H Calcium 8.9 Total Bilirubin 1.4 H AST 22 ALT 32 Alkaline Phosphatase 64 Total Creatine Kinase 77 Total Protein 6.6 D Albumin 3.3 L D Assessment and Plan - Assessment (1) Acute cholecystitis Code(s): K81.0 - Acute cholecystitis Status: Acute Plan: Status post cholecystectomy. Patient doing well. He has been cleared for discharge if tolerates breakfast and lunch. Will provide patient with small prescription for analgesics to use for postoperative pain. He has history of liver disease and cannot take acetaminophen. Will provide oxycodone 5 mg 1 tablet every 6 hours as needed for pain. Patient to follow-up with surgery as ordered. (2) Hypertension Code(s): I10 - Essential (primary) hypertension Status: Chronic Plan: Blood pressure under adequate control with current medication. Patient to resume usual medications at home. (3) GERD (gastroesophageal reflux disease) Code(s): K21.9 - Gastro-esophageal reflux disease without esophagitis Status: Chronic Plan: Resume omeprazole at home. (2) Hypertension Qualifiers: Hypertension type: essential hypertension Qualified Code(s): I10 - Essential (primary) hypertension (3) GERD (gastroesophageal reflux disease) Qualifiers: Esophagitis presence: without esophagitis Qualified Code(s): K21.9 - Gastro- esophageal reflux disease without esophagitis
--- NOTE | 2018-03-04 09:16 | P.PNGS ---
Subjective Patient reports: no new complaints, feels better, no bowel movement Physical Exam Vital signs: Vital Signs 03/03/18 13:00 03/03/18 18:38 03/03/18 19:00 Temperature 98.2 F 98.7 F Pulse Rate 70 75 64 Respiratory Rate 18 18 18 Blood Pressure 157/94 H 139/66 142/72 H Pulse Oximetry 95 98 98 03/03/18 19:15 03/03/18 19:30 03/03/18 19:45 Temperature 98 F Pulse Rate 58 L 64 59 L Respiratory Rate 18 18 Blood Pressure 144/69 H 143/72 H 133/65 Pulse Oximetry 98 94 L 96 03/03/18 20:00 03/04/18 00:00 03/04/18 01:48 Temperature 97.2 F L 97.2 F L Pulse Rate 61 63 Respiratory Rate 18 18 Blood Pressure 136/66 110/59 L Pulse Oximetry 93 L 94 L 03/04/18 04:00 03/04/18 07:58 Temperature 97.2 F L 97.3 F L Pulse Rate 64 72 Respiratory Rate 19 16 Blood Pressure 122/61 142/63 H Pulse Oximetry 93 L 92 L Intake & Output 03/03/18 03/04/18 03/04/18 18:59 06:59 18:59 Intake Total 1500 / 1500 1200 / 1200 Output Total 365 / 365 575 / 575 Balance 1135 / 1135 625 / 625 Weight 90.8 kg Intake: IV 200 / 200 400 / 400 NS Inj 1,000 ML @ 60 mls/hr IV. 100 / 100 CONT .[id number] [facility] Rx#:[id number] Zosyn 4.5 GM Premix 4.5 gm In 100 / 100 300 / 300 100 ml @ 200 mls/hr IV.SIG Q6H [facility] Rx#:[id number] Flagyl 500 MG Inj 100 ML @ 100 100 / 100 mls/hr IV.SIG ONCE ONE Rx#: [id number] Oral 0 / 0 800 / 800 Anesthesia Amount 1300 / 1300 Output: Urine 350 / 350 575 / 575 Estimated Blood Loss Other: Date of Last Bowel Movement 03/02/18 - Routine Abdominal Exam Present: soft (incisional tenderness) Results - Labs 03/04/18 05:03 03/04/18 05:03 Laboratory Results - last 24 hr 1103/04/18 03/04/18 13:39 05:03 05:03 WBC 7.7 RBC 4.60 Hgb 14.7 Hct 41.7 MCV 90.5 MCH 31.9 MCHC 35.2 RDW 13.4 Plt Count 200 MPV 8.5 Neut % (Auto) 87.6 H Lymph % (Auto) 8.5 L [place] % (Auto) 3.8 Eos % (Auto) 0.0 Baso % (Auto) 0.1 Neut # (Auto) 6.7 Lymph # (Auto) 0.7 L [place] # (Auto) 0.3 Eos # (Auto) 0.0 Baso # (Auto) 0.0 WBC Differential . Differential Comment Auto diff final Sodium 135 L Potassium 4.3 Chloride 103 D Carbon Dioxide 24.3 Anion Gap 8 BUN 7 Creatinine 0.90 Estimated GFR 84 L Random Glucose 111 H Calcium 8.9 Total Bilirubin 1.4 H AST 22 ALT 32 Alkaline Phosphatase 64 Total Creatine Kinase 77 Total Protein 6.6 D Albumin 3.3 L D - Imaging Imaging: ITS Impressions Abdomen/Pelvis CT 03/03/18 00:10 CONCLUSION: Cholecystitis Assessment and Plan - Assessment (1) Cholecystitis Code(s): K81.9 - Cholecystitis, unspecified Status: Acute Plan: 67 year old male with cholecystitis umbilical hernia s/p laparoscopic cholecystectomy umbilical hernia repair doing well Reg soft diet oob pain control f/u with Dr. Mc 1 week d/c planning
--- NOTE | 2018-03-04 09:18 | P.DS ---
Date of admission: 03/03/18 03:59 Primary care physician: No Primary Care Physician Attending physician on discharge: Nikolay Perez Anticipated date of discharge: 03/04/18 Brief History from admission: This 67-year-old white male well-known to the undersigned physician had sudden onset of epigastric and right upper quadrant abdominal discomfort with some mild nausea following dinner on the evening prior to admission. It lasted for several hours. The patient had no emesis, fever or chills. He contacted the undersigned physician who instructed the patient to report to the emergency department for further evaluation and treatment. In the emergency department, the patient's laboratory studies were unremarkable except fo a low sodium level. The CT scan of the abdomen and pelvis revealed findings consistent with acute cholecystitis and cholelithiasis. The patient would be admitted to medical surgical bed. Started on IV antibiotics and general surgery was consulted. He was provided morphine sulfate for pain control. The patient was made n.p.o. with anticipation of necessity of surgical intervention. Patient update on day of discharge: The patient is status post cholecystectomy. He is tolerating a regular diet. Pain is under adequate control. Blood pressure is well controlled with current medication. DS: Diagnosis - Discharge Diagnosis (1) Acute cholecystitis Status: Acute (2) Hypertension Status: Chronic (3) GERD (gastroesophageal reflux disease) Status: Chronic DS: Medications - Discharge Medications Prescriptions: oxycodone 5 mg PO Q6HR PRN 3 Days #12 cap PRN Reason: Acute Pain DS: Summary Hospital Course: The patient was admitted to medical surgical bed. He was initiated on IV antibiotics. The patient was seen by general surgery who felt the patient would benefit from cholecystectomy. The patient underwent laparoscopic cholecystectomy and repair of an umbilical hernia without complications. On the following morning, the patient was tolerating p.o., pain was under adequate control without medication at that time, he was ambulating in the room , voiding well and blood pressure was under good control. It was felt he had obtained maximum benefit from the hospitalization. The patient was discharged home in good condition with instructions to follow-up with surgery as scheduled and with Dr. Perez in 1-2 weeks. He would be on a heart healthy diet. Activity would be as tolerated. - Time Spent with Patient Total time spent providing and/or coordinating discharge services: Less than 30 minutes - Quality: VTE Deep Vein Thrombosis/Pulmonary Embolism Present on Admission: No Exam Vital signs: Vital Signs 03/03/18 13:00 03/03/18 18:38 03/03/18 19:00 Temperature 98.2 F 98.7 F Pulse Rate 70 75 64 Respiratory Rate 18 18 18 Blood Pressure 157/94 H 139/66 142/72 H Pulse Oximetry 95 98 98 03/03/18 19:15 03/03/18 19:30 03/03/18 19:45 Temperature 98 F Pulse Rate 58 L 64 59 L Respiratory Rate 18 18 18 Blood Pressure 144/69 H 143/72 H 133/65 Pulse Oximetry 98 94 L 96 03/03/18 20:00 03/04/18 00:00 03/04/18 01:48 Temperature 97.2 F L 97.2 F L Pulse Rate 61 63 Respiratory Rate 18 19 18 Blood Pressure 136/66 110/59 L Pulse Oximetry 93 L 94 L 03/04/18 04:00 03/04/18 07:58 Temperature 97.2 F L 97.3 F L Pulse Rate 64 72 Respiratory Rate 19 16 Blood Pressure 122/61 142/63 H Pulse Oximetry 93 L 92 L Intake & Output 03/03/18 03/04/18 03/04/18 18:59 06:59 18:59 Intake Total 1500 / 1500 1200 / 1200 Output Total 365 / 365 575 / 575 Balance 1135 / 1135 625 / 625 Weight 200 lb 2.876 oz Intake: IV 200 / 200 400 / 400 NS Inj 1,000 ML @ 60 mls/hr IV. 100 / 100 CONT .[id number] [facility] Rx#:[id number] Zosyn 4.5 GM Premix 4.5 gm In 100 / 100 300 / 300 100 ml @ 200 mls/hr IV.SIG Q6H [facility] Rx#:[id number] Flagyl 500 MG Inj 100 ML @ 100 100 / 100 mls/hr IV.SIG ONCE ONE Rx#: [id number] Oral 0 / 0 800 / 800 Anesthesia Amount 1300 / 1300 Output: Urine 350 / 350 575 / 575 Estimated Blood Loss Other: Date of Last Bowel Movement 03/02/18 - Constitutional mild distress Comments: Due to incisional pain - Routine Respiratory Exam Present: CTA bilaterally - Routine Cardiovascular Exam Present: RRR - Routine Abdominal Exam Comments: Mild distention, soft, bowel sounds present, mild discomfort around incisions. Results Procedures completed during hospitalization: Laparoscopic cholecystectomy-03/03/2018-Dr. Mc Pending studies at discharge: Pending at discharge 03/03/18 07:16 Surgical [PTH] Routine Labs on day of discharge: Labs from last 24 hours 03/04/18 03/04/18 03/03/18 05:03 05:03 13:39 WBC 7.7 RBC 4.60 Hgb 14.7 Hct 41.7 MCV 90.5 MCH 31.9 MCHC 35.2 RDW 13.4 Plt Count 200 MPV 8.5 Neut % (Auto) 87.6 H Lymph % (Auto) 8.5 L [place] % (Auto) 3.8 Eos % (Auto) 0.0 Baso % (Auto) 0.1 Neut # (Auto) 6.7 Lymph # (Auto) 0.7 L [place] # (Auto) 0.3 Eos # (Auto) 0.0 Baso # (Auto) 0.0 WBC Differential . Differential Comment Auto diff final Sodium 135 L Potassium 4.3 Chloride 103 D Carbon Dioxide 24.3 Anion Gap 8 BUN 7 Creatinine 0.90 Estimated GFR 84 L Random Glucose 111 H Calcium 8.9 Total Bilirubin 1.4 H AST 22 ALT 32 Alkaline Phosphatase 64 Total Creatine Kinase 77 Total Protein 6.6 D Albumin 3.3 L D - Impressions ITS Impressions Abdomen/Pelvis CT 03/03/18 00:10 CONCLUSION: Cholecystitis Discharge Plan - Discharge Disposition Patient Disposition: 01 Discharge Home - Discharge Condition Condition: Good - Discharge Order Discharge Orders: Discharge Order (Routine); Ordered 03/04/18 Ordered By: Nikolay Perez - Discharge Details Anticipated Discharge Date: 03/04/18 - Physicians Team Primary Care Provider: Primary Care Lydia Nunez Attending Provider: Nikolay Perez Other Providers: Phil Kuo MD ; [place],Insurance
== END 2018-03-04 13:59 | disposition home or self-care (01) ==
LOC: NEPE 20:20 → NEDA 03-03 03:59 → HCIS 03-03 08:09 → N07 03-03 18:15
PROVIDERS: ADMIT Family Medicine; ATTEND Family Medicine